=== PATIENT | male | born 1970 | race Caucasian/White ===

== ENCOUNTER 2017-11-17 08:57 | Day surgery (SDC) | payer OTHER ==
[2017-11-10 11:53] LABS: HEMATOCRIT 43.1 % (37.9-51.0); HEMOGLOBIN 14.4 g/dL (13.5-17.0); MEAN CORPUSCULAR HEMOGLOBIN 27.8 pg (27.0-33.4); MEAN CORPUSCULAR HGB CONC 33.3 g/dL (32.0-36.0); MEAN CORPUSCULAR VOLUME 83 fl (80-97); PLATELET COUNT 294 10^3/uL (150-450); RED BLOOD COUNT 5.18 10^6/uL (4.35-5.55); RED CELL DISTRIBUTION WIDTH 15.1 % (11.5-14.0); WHITE BLOOD COUNT 11.7 10^3/uL (4.0-10.5)
--- NOTE | 2017-11-10 11:55 | RADIOLOGY REPORT (SQ) ---
EXAM DESCRIPTION: CHEST PA/LATERAL COMPLETED DATE/TIME: 11/10/2017 11:34 am REASON FOR STUDY: PRE OP COMPARISON: None. EXAM PARAMETERS: NUMBER OF VIEWS: two views TECHNIQUE: Digital Frontal and Lateral radiographic views of the chest acquired. RADIATION DOSE: NA LIMITATIONS: none FINDINGS: LUNGS AND PLEURA: No opacities, masses or pneumothorax. No pleural effusion. MEDIASTINUM AND HILAR STRUCTURES: No masses or contour abnormalities. HEART AND VASCULAR STRUCTURES: Heart normal size. No evidence for failure. BONES: No acute findings. HARDWARE: Electrode leads are present over the lower cervical and thoracic spine. OTHER: No other significant finding. IMPRESSION: NO SIGNIFICANT RADIOGRAPHIC FINDING IN THE CHEST. TECHNICAL DOCUMENTATION: JOB ID: [id number] [employer]- All Rights Reserved
[2017-11-10 11:58] LABS: APPEARANCE,URINE CLEAR; BILIRUBIN,URINE NEGATIVE (NEGATIVE); COLOR,URINE YELLOW; GLUCOSE, URINE NEGATIVE (NEGATIVE); KETONES,URINE TRACE mg/dL (NEGATIVE); LEUKOCYTE ESTERASE,URINE NEGATIVE (NEGATIVE); NITRITE,URINE NEGATIVE (NEGATIVE); PROTEIN,URINE NEGATIVE (NEGATIVE); URINE SPECIFIC GRAVITY 1.027
[2017-11-10 12:01] LABS: INTERNATIONAL RATION (INR) 0.85; PROTHROMBIN TIME 12.2 SEC (11.4-15.4)
[2017-11-10 12:02] LABS: PARTIAL THROMBOPLASTIN TIME 32.1 SEC (23.5-35.8)
--- NOTE | 2017-11-10 13:03 | EKG REPORT ---
SEVERITY:- NORMAL ECG - SINUS RHYTHM ST ELEV, PROBABLE NORMAL EARLY REPOL PATTERN : Confirmed by: [place] MD 10-Nov-2017 13:02:04
[~2017-11-17 08:57] MED LIST: CEFAZOLIN 1 GM/D5W RTU 1 GM/50 ML RTUPB IV PRN; LACTATED RINGERS 1000 ML IV PRN; LIDOCAINE 0.5% INJ-PF (5 MG/ML) 50 ML SDV SUBCUT PRN
[2017-11-17] MEDS ORDERED: LIDOCAINE 1% INJ-PF (10 MG/ML) 30 ML SDV ONE (09:44)
[2017-11-17] MEDS ORDERED: SODIUM BICARBONATE 8.4% INJ 50 MEQ/50 ML DISP.SYRIN ONE (09:44)
[2017-11-17] MEDS ORDERED: BUPIVACAINE HCL 0.5%-EPI 1:200000 INJ/PF 30 ML VIAL ONE (09:45)
[2017-11-17] MEDS ORDERED: LIDOCAINE 2% INJ-PF (20 MG/ML) 10 ML AMPUL ONE (11:32)
[2017-11-17] MEDS ORDERED: FENTANYL CITRATE INJ/PF 100 MCG/2 ML AMPUL ONE (11:32)
[2017-11-17] MEDS ORDERED: MIDAZOLAM 2 MG/2 ML INJ ONE (11:33)
[2017-11-17] MEDS ORDERED: PROPOFOL INJ 200 MG/20 ML VIAL IV ONE ×2 (11:33→12:52)
[2017-11-17] MEDS ORDERED: FENTANYL CITRATE INJ/PF 100 MCG/2 ML AMPUL IV PRN ×3 (12:19)
[2017-11-17] MEDS ORDERED: MORPHINE SULFATE 10 MG/ML INJ IV PRN (12:19)
[2017-11-17] MEDS ORDERED: ONDANSETRON HCL INJ/PF 4 MG/2 ML SDV IV PRN (12:19)
[2017-11-17] MEDS ORDERED: MEPERIDINE HCL/PF INJ 25 MG/1 ML DISP.SYRIN IV PRN (12:19)
[2017-11-17] MEDS ORDERED: DIPHENHYDRAMINE HCL 50 MG/ML VIAL IV PRN (12:19)
[2017-11-17] MEDS ORDERED: PROMETHAZINE HCL INJ 25 MG/1 ML VIAL IV PRN ×2 (12:19)
[2017-11-17] MEDS ORDERED: OXYCODONE-ACETAMINOPHEN 5-325 MG TABLET PO PRN ×3 (12:19→13:42)
[2017-11-17] MEDS ORDERED: CEFAZOLIN INJ 1 GM VIAL ONE (12:42)
--- NOTE | 2017-11-17 13:19 | OPERATIVE REPORT E ---
Operative Report NAME: ERIBERTO ROLAND : 1970 AGE: 46Y DATE OF SURGERY: 11/17/2017 ROOM: PREOPERATIVE DIAGNOSIS: Nonfunctioning spinal cord stimulator for left upper and lower extremity pain secondary to complex regional pain syndrome. POSTOPERATIVE DIAGNOSIS: Nonfunctioning spinal cord stimulator for left upper and lower extremity pain secondary to complex regional pain syndrome. OPERATIVE PROCEDURE: 1. Removal of pulse generator left gluteal region. 2. Fluoroscopic evaluation of lead system. SURGEON: LANCE SALMON M.D. ANESTHESIA: MAC. COMPLICATIONS: None. FINDINGS: As above. Fluoroscopic review demonstrates plate electrode placed above the C1 level with partial entrance into the epidural space. The remaining portion is outside the epidural space with a small coil at the base of the neck and 2 leads down to the pulse generator in a subcutaneous fashion. Upon review of this and consideration of the risks and benefits, decision was made to leave the lead in and remove only the generator. The patient was aware of this at the time of surgery. OPERATIVE NOTE: After obtaining informed consent, advising patient of the risks and benefits including serious neurological injury, serious exacerbation of pain, bleeding and infection, he was taken to the operating room and placed comfortably in the prone position. His arms were by his side. He was prepped from the base of the skull to the gluteal region with emphasis over his previous surgical sites. Appropriate drying time of 5 minutes was passed prior to draping. The decision had been made after fluoroscopy to pursue only removal of the pulse generator. The patient was aware of this preoperatively. Local anesthetic 1% lidocaine with bicarbonate was placed in the incision followed by 0.25% bupivacaine with epinephrine. Sharp and blunt dissection was performed down to the pulse generator without difficulty. Electrocautery was used for hemostasis as necessary. The pulse generator was easily removed from the system. A single stay suture was cut. The leads were then transected and placed within the pocket. The wound was copiously irrigated. Hemostasis was obtained with electrocautery as necessary. The wound was then closed with interrupted vertical mattress sutures using 3-0 Polysorb followed by arcadio. Sterile Telfa dressing was placed upon this followed by OpSite. He was then taken to the PACU for further postoperative care and monitoring. DICTATING PHYSICIAN: LANCE SALMON M.D. [id number] PHY#: [id number] ID: [id number] JOB#: [id number] ACCT: [id number] cc:LANCE SALMON M.D. >
[2017-11-17] MEDS ORDERED: OXYCODONE-ACETAMINOPHEN 5-325 MG TABLET ONE (13:26)
[2017-11-17 14:36] VITALS: BP 120/74
--- NOTE | 2017-11-17 15:02 | RADIOLOGY REPORT (SQ) ---
EXAM DESCRIPTION: NO CHG FLUORO; CERV SP 3 VIEW OR LESS COMPLETED DATE/TIME: 11/17/2017 2:29 pm REASON FOR STUDY: HARDWARE REMOVAL ASST WITH FLUORO IN OR G89.4 CHRONIC PAIN SYNDROME COMPARISON: None. FLUOROSCOPY TIME: 0.8 minutes. 4 images saved to PACS. TECHNIQUE: Intra-operative images acquired during surgical procedure to evaluate progress. NUMBER OF IMAGES: 4 LIMITATIONS: None. FINDINGS: Limited spot fluoro images reveal a patient undergoing placement of cervical epidural spin al leads. Please correlate with full operative report. IMPRESSION: IMAGE(S) OBTAINED DURING PROCEDURE. COMMENT: Quality ID [id number]: Final reports for procedures using fluoroscopy that document radiation exp osure indices, or exposure time and number of fluorographic images (if radiation exposure indices are not available) Please consult full operative report of the attending physician for description of the procedure. TECHNICAL DOCUMENTATION: JOB ID: [id number] [employer]- All Rights Reserved
== END 2017-11-17 14:15 | disposition home or self-care (01) ==
LOC: OROUT 08:57
PROVIDERS: ATTEND Pain Medicine Interventional Pain Medicine
PROC: 0JPT0MZ Removal of Stimulator Generator from Trunk Subcutaneous Tissue and Fascia, Open Approach (ICD-10-PCS; principal; 2017-11-17 11:00)
DX: G89.4 Chronic pain syndrome (principal); M96.1 Postlaminectomy syndrome, not elsewhere classified; Y83.8 Other surgical procedures as the cause of abnormal reaction of the patient, or of later complication, without mention of misadventure at the time of the procedure; Y82.8 Other medical devices associated with adverse incidents; G90.512 Complex regional pain syndrome I of left upper limb
CPT/HCPCS: 93005; 36415; 85027; 85610; 85730; 81001; 72040; 71046; 93010; 63688; J2250; J3490 ×4; J0690 ×2; J3010; J2704; 1936